=== PATIENT | male | born 1975 | race Caucasian/White ===

== ENCOUNTER 2019-12-27 16:49 | Emergency (ER) | payer OTHER ==
[~2019-12-27] VITALS: Ht 180.3 cm; Wt 113.4 kg
[~2019-12-27 16:49] MED LIST: ABAC300; ALBU90OI6 INH; ALLO100 PO; AMLO10 PO; ASPI81CH PO; BREO ELLIPTA 11 EACH IH; BUME2 PO; CEPH500 PO; CIPR500 PO; CYCL10 PO; FURO40 PO; FURO80 PO; HYDACE5 PO; HYDCHL50 PO; Humalog100 UNIT/1; INSDET100 SQ; INSLI100I SC; INSR10I SC; LISI20 PO; LOSA25 PO; Lisinopril2.5 MG PO; META800 PO; METO100 PO; METO100ER PO; METO2.5 PO; METO25ER PO; METO50 PO; METR500 PO; NAPR500 PO; OLME20-12. PO; OMEG1CAP30 PO; OXYACE5T PO; PENVK500 PO; POTCHL10ER PO; PRAZ2 PO; PROM25 PO; SPIR25 PO; TRAM50 PO; VALS80 PO; Zofran4 MG PO; Zofran8 MG PO
[2019-12-27 17:18] LABS: BASOPHILS ABSOLUTE AUTO 0.08 K/mm3 (0.00-0.23); BASOPHILS PERCENT AUTO 0 % (0-2); EOSINOPHILS ABSOLUTE AUTO 0.05 K/mm3 (0.00-0.68); EOSINOPHILS PERCENT AUTO 0 % (0-6); Hematocrit 40.4 % (37.0-53.0); Hemoglobin 13.2 g/dL (13.5-17.5); IMMATURE GRAN ABSOLUTE AUTO 0.14 K/mm3 (0.00-0.10); IMMATURE GRAN PERCENT AUTO 1 % (0-1); LYMPHOCYTES PERCENT AUTO 3 % (21-46); MONOCYTES ABSOLUTE AUTO 1.11 K/mm3 (0.16-1.47); MONOCYTES PERCENT AUTO 5 % (4-13); Mean Corpuscular HGB 29.7 pg (26.0-34.0); Mean Corpuscular HGB Conc 32.7 g/dL (31.5-36.5); Mean Corpuscular Volume 91 fL (80-100); Mean Platelet Volume 9.7 fL (9.1-12.4); NEUTROPHILS ABSOLUTE AUTO 18.89 K/mm3 (1.96-9.15); NEUTROPHILS PERCENT AUTO 91 % (41-73); Platelet Count 192 K/mm3 (150-400); RDW Coefficient Variation 14.1 % (11.7-14.2); RDW Standard Deviation 47.1 fL (35.1-46.3); Red Blood Cell Count 4.44 M/mm3 (4.30-5.90); White Blood Cell Count 20.87 K/mm3 (4.00-11.30)
[2019-12-27 17:40] LABS: Albumin, Blood 3.9 g/dL (3.4-5.0); Bun/Creatinine Ratio 11.3 (12.0-20.0); Calcium, Blood 9.5 mg/dL (8.5-10.1); Creatinine, Blood 1.94 mg/dL (0.60-1.20); Globulin, Blood 4.1 g/dL (2.2-4.0); Potassium, Blood 4.4 mmol/L (3.5-5.5)
[2019-12-27] MEDS ORDERED: PROM25 PO (18:41)
== END 2019-12-27 19:09 | disposition home or self-care (01) ==
LOC: ER 16:49
PROVIDERS: Emergency Medicine
DX: R11.2 Nausea with vomiting, unspecified (principal); R19.7 Diarrhea, unspecified; R10.9 Unspecified abdominal pain; I10 Essential (primary) hypertension; E10.43 Type 1 diabetes mellitus with diabetic autonomic (poly)neuropathy; K31.84 Gastroparesis; Z88.0 Allergy status to penicillin; Z88.2 Allergy status to sulfonamides; Z88.8 Allergy status to other drugs, medicaments and biological substances; Z88.1 Allergy status to other antibiotic agents; Z79.82 Long term (current) use of aspirin; Z79.899 Other long term (current) drug therapy
CPT/HCPCS: 36415; 80053; 83690; 83735; 85025; 96361; 96374; 99283-25; J2405; J2550; J7120

== ENCOUNTER 2020-10-27 06:46 | Day surgery (SDC) | payer OTHER ==
[~2020-10-27] VITALS: Ht 180.3 cm; Wt 107.0 kg
[~2020-10-27 06:46] MED LIST changes: +BREO ELLIPTA 11 EAC1 IH; -BREO ELLIPTA 11 EACH IH; +LORA10ER PO; +RAYALDEE30 MCG PO
[2020-10-27 08:12] LABS: BASOPHILS ABSOLUTE AUTO 0.07 K/mm3 (0.00-0.23); BASOPHILS PERCENT AUTO 1 % (0-2); EOSINOPHILS ABSOLUTE AUTO 0.16 K/mm3 (0.00-0.68); EOSINOPHILS PERCENT AUTO 1 % (0-6); Hematocrit 37.9 % (37.0-53.0); Hemoglobin 12.9 g/dL (13.5-17.5); IMMATURE GRAN ABSOLUTE AUTO 0.04 K/mm3 (0.00-0.10); IMMATURE GRAN PERCENT AUTO 0 % (0-1); LYMPHOCYTES ABSOLUTE AUTO 1.22 K/mm3 (0.84-5.20); LYMPHOCYTES PERCENT AUTO 11 % (21-46); MONOCYTES ABSOLUTE AUTO 0.71 K/mm3 (0.16-1.47); MONOCYTES PERCENT AUTO 6 % (4-13); Mean Corpuscular HGB 29.9 pg (26.0-34.0); Mean Corpuscular Volume 88 fL (80-100); Mean Platelet Volume 10.7 fL (9.1-12.4); NEUTROPHILS ABSOLUTE AUTO 9.11 K/mm3 (1.96-9.15); NEUTROPHILS PERCENT AUTO 81 % (41-73); Platelet Count 211 K/mm3 (150-400); RDW Coefficient Variation 14.3 % (11.7-14.2); RDW Standard Deviation 46.6 fL (35.1-46.3); Red Blood Cell Count 4.31 M/mm3 (4.30-5.90); White Blood Cell Count 11.31 K/mm3 (4.00-11.30)
--- NOTE | 2020-10-27 13:29 | NUR ---
PT TO IMAGING.
--- NOTE | 2020-10-27 14:00 | NUR ---
PT RESTING COMFORTABLY, VSS. NADN. L CHEST WALL SITE REMAINS CLEAR. NO BLEEDING NOTED. CLINDAMYCIN 300MG IV STARTED PER ORDERS. TOLERATING WELL. S/O AT BEDSIDE.
--- NOTE | 2020-10-27 14:50 | NUR ---
PT VERBALIZES UNDERSTANDING WRITTEN AND VERBAL ORDERS. PT DRESSES SELF WITH MINIMAL ASSISTANCE. VSS. NADN. PT WITH SLING IN PLACE.
--- NOTE | 2020-10-27 14:56 | NUR ---
PT IV DC'D. CATH INTACT. PRESSURE DSG APPLIED. PT DC TO HOME HOME VIA S/O BY ELVIS.
== END 2020-10-27 15:12 | disposition home or self-care (01) ==
LOC: MHTC 06:46
PROVIDERS: Internal Medicine Cardiovascular Disease
DX: I49.5 Sick sinus syndrome (principal); I12.9 Hypertensive chronic kidney disease with stage 1 through stage 4 chronic kidney disease, or unspecified chronic kidney disease; E10.22 Type 1 diabetes mellitus with diabetic chronic kidney disease; N18.9 Chronic kidney disease, unspecified; J45.909 Unspecified asthma, uncomplicated; H54.8 Legal blindness, as defined in USA; E78.5 Hyperlipidemia, unspecified; E66.9 Obesity, unspecified; Z68.32 Body mass index [BMI] 32.0-32.9, adult; Z95.2 Presence of prosthetic heart valve; Z88.1 Allergy status to other antibiotic agents; Z88.5 Allergy status to narcotic agent; Z88.0 Allergy status to penicillin; Z88.2 Allergy status to sulfonamides; Z88.8 Allergy status to other drugs, medicaments and biological substances
CPT/HCPCS: 33208; 71046; 82947; 85025; 93005; 93010; 99152; 99153; A9270; C1785; C1898; J1580; J1644; J2250; J2405; J3010; J7030; J7040

== ENCOUNTER 2021-02-20 08:44 | Day surgery (SDC) | payer OTHER ==
[~2021-02-20] VITALS: Ht 180.3 cm; Wt 101.0 kg
[2021-02-20] MEDS ORDERED: ALLEGRA ALLERG180 MG PO (10:40)
--- NOTE | 2021-02-20 10:43 | NUR ---
Ambulatory in Day Surgery. History, Chart, Medications and Allergies reviewed before start of procedure. Patient confirms NPO status and agrees with scheduled surgery. Pre-Op teaching done. Pt verbalizes understanding. Patient States Post-Procedure ride home has been arranged.
--- NOTE | 2021-02-20 11:20 | NUR ---
02/20/21 1120 John Sevilla History, Chart, Medications and Allergies reviewed before start of procedure. Patient confirms NPO status and agrees with scheduled surgery. 3-LEAD EKG REVIEWED WITH PHYSICIAN PRIOR TO START OF PROCEDURE. MONITOR INTACT WITH CONTINUOUS PULSE OXIMETRY AND INTERMITTENT BP. PATIENT DETERMINED TO BE ASA APPROPRIATE FOR PROPOFOL SEDATION PRIOR TO START OF PROCEDURE BY . Bite Block Placed, WILL REMOVE AFTER PROCEDURE. HURRICAINE SPRAY TO OROPHARYX.
--- NOTE | 2021-02-20 12:26 | NUR ---
Patient States Post-Procedure ride home has been arranged with medical transport. Discharge instructions reviewed with patient. Patient verbalizes understanding. Copy given to patient to take home. Discharged via wheelchair to private car for ride home.
== END 2021-02-20 11:53 | disposition home or self-care (01) ==
LOC: ORSCMMR 08:44 → ORD 10:00 → ORSCMMR 11:53
PROVIDERS: Internal Medicine Gastroenterology
PROC: 0DB58ZX Excision of Esophagus, Via Natural or Artificial Opening Endoscopic, Diagnostic (ICD-10-PCS; principal; 2021-02-20 10:00)
PROC: 0DB78ZX Excision of Stomach, Pylorus, Via Natural or Artificial Opening Endoscopic, Diagnostic (ICD-10-PCS; principal; 2021-02-20 10:00)
PROC: 0DB98ZX Excision of Duodenum, Via Natural or Artificial Opening Endoscopic, Diagnostic (ICD-10-PCS; principal; 2021-02-20 10:00)
DX: K21.9 Gastro-esophageal reflux disease without esophagitis (principal); R11.2 Nausea with vomiting, unspecified; E10.319 Type 1 diabetes mellitus with unspecified diabetic retinopathy without macular edema; F41.8 Other specified anxiety disorders; K31.84 Gastroparesis; Z95.0 Presence of cardiac pacemaker; Z79.4 Long term (current) use of insulin; Z79.899 Other long term (current) drug therapy
CPT/HCPCS: 82947; 88305; 88342; A9270; J2250; J2704; J7120

== ENCOUNTER 2021-06-25 14:27 | Inpatient (IN) | payer OTHER ==
[~2021-06-25] VITALS: Ht 180.3 cm; Wt 90.5 kg
[~2021-06-25 14:27] MED LIST changes: +ALLEGRA ALLERG180 MG PO
[2021-06-25] MEDS ORDERED: Ventolin/Prove6.7 GM INH (14:49)
[2021-06-25] MEDS ORDERED: LOSARTAN POTASS25 M2 PO (14:49)
[2021-06-25] MEDS ORDERED: FLUTICASONE-SA1 EAC9 INH (14:50)
[2021-06-25] MEDS ORDERED: PANTOPRAZOLE SO40 M2 PO (14:50)
[2021-06-25] MEDS ORDERED: AMLODIPINE BESY10 MG PO (14:50)
[2021-06-25] MEDS ORDERED: Fexofenadine HC60 MG PO (14:50)
[2021-06-25] MEDS ORDERED: PRAZ1 ×2 (14:50→14:55)
[2021-06-25] MEDS ORDERED: EZETIMIBE10 M6 PO (14:51)
[2021-06-25] MEDS ORDERED: SPIRONOLACTONE25 MG PO (14:51)
[2021-06-25] MEDS ORDERED: K-Dur10 MEQ (14:51)
[2021-06-25] MEDS ORDERED: ALLOPURINOL100 M1 PO (14:51)
[2021-06-25] MEDS ORDERED: INSULIN AS100 UNIT/7 (14:52)
[2021-06-25] MEDS ORDERED: TOUJEO SOL300 UNIT/2 SC (14:52)
[2021-06-25] MEDS ORDERED: FLUTICASONE-SA1 EAC9 IH (14:53)
[2021-06-25] MEDS ORDERED: METOCLOPRAMIDE H (14:53)
[2021-06-25] MEDS ORDERED: FUROSEMIDE40 MG PO (14:53)
[2021-06-25] MEDS ORDERED: METO100ER PO (14:53)
[2021-06-25] MEDS ORDERED: ARNUITY ELLIP100 MCG (14:54)
[2021-06-25 15:00] LABS: BASOPHILS ABSOLUTE AUTO 0.11 K/mm3 (0.00-0.23); BASOPHILS PERCENT AUTO 1 % (0-2); EOSINOPHILS ABSOLUTE AUTO 0.02 K/mm3 (0.00-0.68); EOSINOPHILS PERCENT AUTO 0 % (0-6); Hematocrit 40.6 % (37.0-53.0); Hemoglobin 13.2 g/dL (13.5-17.5); IMMATURE GRAN ABSOLUTE AUTO 0.07 K/mm3 (0.00-0.10); IMMATURE GRAN PERCENT AUTO 1 % (0-1); LYMPHOCYTES ABSOLUTE AUTO 0.78 K/mm3 (0.84-5.20); LYMPHOCYTES PERCENT AUTO 5 % (21-46); MONOCYTES ABSOLUTE AUTO 0.33 K/mm3 (0.16-1.47); MONOCYTES PERCENT AUTO 2 % (4-13); Mean Corpuscular HGB 28.5 pg (26.0-34.0); Mean Corpuscular HGB Conc 32.5 g/dL (31.5-36.5); Mean Corpuscular Volume 88 fL (80-100); Mean Platelet Volume 10.2 fL (9.1-12.4); NEUTROPHILS ABSOLUTE AUTO 13.26 K/mm3 (1.96-9.15); NEUTROPHILS PERCENT AUTO 91 % (41-73); Platelet Count 248 K/mm3 (150-400); RDW Coefficient Variation 13.8 % (11.7-14.2); RDW Standard Deviation 44.4 fL (35.1-46.3); Red Blood Cell Count 4.63 M/mm3 (4.30-5.90); White Blood Cell Count 14.57 K/mm3 (4.00-11.30)
[2021-06-25 15:56] LABS: Albumin, Blood 3.7 g/dL (3.4-5.0); Albumin/Globulin Ratio 0.8 (0.8-1.8); Bilirubin, Total 1.6 mg/dL (0.1-1.0); Bun/Creatinine Ratio 18.3 (12.0-20.0); Calcium, Blood 10.1 mg/dL (8.5-10.1); Creatinine, Blood 2.4 mg/dL (0.60-1.20); Globulin, Blood 4.6 g/dL (2.2-4.0); Potassium, Blood 5.4 mmol/L (3.5-5.5); Total Protein, Blood 8.3 g/dL (6.4-8.2)
[2021-06-25 18:23] LABS: Glucose, Blood 626 mg/dL (70-99)
--- NOTE | 2021-06-25 19:00 | NUR ---
ASSUMED CARE PATIENT LYING IN BED AWAKE, TALKING WITH STAFF. BELGONINGS ARE PLACED IN OPEN CUBBY IN ROOM. INSUILN GTT INF @ 9 UNITS/HR AND NS @ 250ML/HR INTO RT AC. LT AC IV SALINE LOCKED. V/S STABLE. BEDSIDE REPORT COMPLETED WITH NAIN MILLER.
[2021-06-25 19:07] LABS: Calcium, Blood 9.1 mg/dL (8.5-10.1); Creatinine, Blood 2.58 mg/dL (0.60-1.20); Potassium, Blood 4.1 mmol/L (3.5-5.5)
[2021-06-25 23:11] LABS: Hematocrit 33.2 % (37.0-53.0); Hemoglobin 11.3 g/dL (13.5-17.5)
[2021-06-25 23:26] LABS: Bun/Creatinine Ratio 19.7 (12.0-20.0); Calcium, Blood 9.2 mg/dL (8.5-10.1); Creatinine, Blood 2.49 mg/dL (0.60-1.20); Potassium, Blood 3.8 mmol/L (3.5-5.5)
[2021-06-26 04:17] LABS: Albumin, Blood 2.8 g/dL (3.4-5.0); Albumin/Globulin Ratio 0.8 (0.8-1.8); Bilirubin, Total 0.7 mg/dL (0.1-1.0); Bun/Creatinine Ratio 19.9 (12.0-20.0); Calcium, Blood 8.7 mg/dL (8.5-10.1); Creatinine, Blood 2.41 mg/dL (0.60-1.20); Globulin, Blood 3.6 g/dL (2.2-4.0); Potassium, Blood 3.7 mmol/L (3.5-5.5); Total Protein, Blood 6.4 g/dL (6.4-8.2)
--- NOTE | 2021-06-26 06:30 | NUR ---
SHIFT SUMMARY PATIENT SLEPT THROUGH MOST OF SHIFT. CPAP PLACED ON PATIENT WITH HOME SETTINGS 12/10 21% FIO2. CBG DECREASED FROM 500'S NOW DOWN TO 250'S. NS SWITCHED TO D5 / NS @ 200ML/HR. INSULIN GTT @ 6 UNITS/HR. NO URINE OUTPUT DURING SHIFT. PATIENT HAD ONE EPISODE OF VOMITING DURING THE NIGHT FOLLOWING A COUGHING FIT, BUT DECLINED NAUSEA MEDICATION. NO OTHER CHANGES DURING SHIFT.
--- NOTE | 2021-06-26 07:43 | NUR ---
PT AWAKE, A&O, FOLLOWING COMMANDS ABLE. SPEAKING IN FULL SENTENCES. STS HE IS FEELING MUCH IMPROVED & IS IN GOOD SPIRITS. CBG 169. INSULIN gtt DEC TO 4u/hr. D5 1/2NS @ 200ml/hr. TOLERATING SIPS OF WATER. DENIES N/V. ASSISTED TO STAND @ BEDSIDE TO USE URINAL, NO OUTPUT. PT REQUESTS TO SIT ON THE SIDE OF THE BED. BED LOW, CALL LIGHT W/ IN REACH, & DOOR LEFT OPEN FOR BEST PT OBS. SEE INITIAL SHIFT DOCUMENTATION FOR FULL ASSESSMENT.
--- NOTE | 2021-06-26 08:48 | NUR ---
DR BORREGO @ BEDSIDE FOR AM ROUNDS. DISCUSSED PT's TRENDING CBGs & TRANSITIONING OFF THE INSULIN gtt. PT ABLE TO TOLERATE PO FLUIDS. PER SALIMA, MAY ADVANCE DIET TOLERATED & D/T PT's INSULIN PUMP, WE WILL TRANSITION HIM FROM THE gtt TO HIS PUMP ONCE HIS ARRIVES W/ THE PUMP. PT UPDATED & IS AGREEABLE TO THIS PLAN. PT GIVEN JELLO & WATER, TOLERATED WELL.
[2021-06-26 09:15] LABS: Bun/Creatinine Ratio 20.2 (12.0-20.0); Calcium, Blood 9.5 mg/dL (8.5-10.1); Creatinine, Blood 2.23 mg/dL (0.60-1.20); Potassium, Blood 3.9 mmol/L (3.5-5.5)
--- NOTE | 2021-06-26 10:16 | NUR ---
@ ROUTINE ROUNDING, PT STS HE WANTS TO BE DC'D HOME TODAY. PT EDUCATED ON HIS FRAGILE STATE & THAT HE IS ONLY JUST RECOVERED FROM DKA & WILL NEED FURTHER MONITORING @ LEAST THROUGH THE DAY. PT STS HE IS VERY "ON EDGE" NOT BEING @ HOME & W/OUT HIS ASSISTIVE DEVICES; STS "I WILL CHECK MYSELF OUT". PT SEEMS SOMEWHAT RECEPTIVE TO EDUCATION BUT STILL INSISTS ON LEAVING WHEN HIS SPOUSE ARRIVES THIS AFTERNOON.
--- NOTE | 2021-06-26 13:00 | NUR ---
DR NOVOA @ BEDSIDE FOR ROUNDS & TO DISCUSS PLAN FOR DC HOME. PER MD, PT MAY EAT LUNCH & RE-START PERSONAL INSULIN PUMP INSULIN gtt IS STOPPED. IF CBGs REMAIN <250, PT MAY BE DC'd HOME WHEN HIS RIDE ARRIVES @ 1530. PT IS AGREEABLE TO THIS PLAN.
[2021-06-26 13:20] LABS: Bun/Creatinine Ratio 20.2 (12.0-20.0); Calcium, Blood 9.2 mg/dL (8.5-10.1); Creatinine, Blood 2.03 mg/dL (0.60-1.20); Potassium, Blood 3.9 mmol/L (3.5-5.5)
--- NOTE | 2021-06-26 16:00 | NUR ---
UPDATE: INC CBG. PT MADE READY FOR DC. CBG NOW 274 DESPITE PT's RECEIVING 6 units REG INSULIN BOLUS FROM INSULIN PUMP. DENIES N/V, ABD PAIN, DIZZINESS. PT STS HE WILL LEAVE AMA IF HE IS NOT DC'd; STS HE CAN MANAGE HIS CBGs @ HOME W/ HIS PUMP. CALLED DR NOVOA & DISCUSSED CONCERNS FOR ABOVE. PER BRIGHT, ADVISE PT TO BOLUS SELF W/ 3units OF INSULIN VIA PUMP PT HAS BEEN ON INSULIN gtt & MAY REQUIRE MORE INSULIN. PT IS OK TO BE DC'd HOME PER MD. PT GIVEN THOROUGH DC INSTRUCTIONS & TEACHING ON HYPERGLYCEMIA, UNDERSTANDING VERBALIZED. PT ENCOURAGED TO RETURN TO ED FOR RETURN OF HYPERGLYCEMIA S/Sx THAT ARE UNCHANGED W/ HOME INSULIN REGIMEN. UNDERSTANDING VERBALIZED. OPPORTUNITY PROVIDED FOR QUESTIONS & ALL QUESTIONS ANSWERED. PT OOTD W/ BELONGINGS.
== END 2021-06-26 16:15 | disposition home or self-care (01) | DRG 637 ==
LOC: ER 14:27 → ICUW 17:32 → ICUE 17:53
PROVIDERS: Family Medicine; Student in an Organized Health Care Education/Training Program; ADMIT Hospitalist
DX: E10.10 Type 1 diabetes mellitus with ketoacidosis without coma (principal); K22.6 Gastro-esophageal laceration-hemorrhage syndrome; N17.9 Acute kidney failure, unspecified; E10.22 Type 1 diabetes mellitus with diabetic chronic kidney disease; I12.9 Hypertensive chronic kidney disease with stage 1 through stage 4 chronic kidney disease, or unspecified chronic kidney disease; N18.32 Chronic kidney disease, stage 3b; D72.829 Elevated white blood cell count, unspecified; E10.43 Type 1 diabetes mellitus with diabetic autonomic (poly)neuropathy; K31.84 Gastroparesis; J45.20 Mild intermittent asthma, uncomplicated; E10.319 Type 1 diabetes mellitus with unspecified diabetic retinopathy without macular edema; Z88.0 Allergy status to penicillin; Z88.2 Allergy status to sulfonamides; Z88.1 Allergy status to other antibiotic agents; Z95.0 Presence of cardiac pacemaker; Z88.8 Allergy status to other drugs, medicaments and biological substances; Z79.4 Long term (current) use of insulin; Z79.899 Other long term (current) drug therapy; Z79.82 Long term (current) use of aspirin; Z95.2 Presence of prosthetic heart valve; Z98.890 Other specified postprocedural states; Z90.49 Acquired absence of other specified parts of digestive tract
CPT/HCPCS: 36415; 71045; 80048; 80053; 82947; 83690; 84484; 85014; 85018; 85025; 93005; 93010; 94640; 94660; 94664; 96374; 96375; 99285; A9270; C9113; J1790; J1815; J2405; J2765; J7030; J7042; J7120

== ENCOUNTER → 2024-09-28 | Outpatient (CLI) | payer OTHER ==
[~2024-09-28] MED LIST changes: +ALLOPURINOL100 M1 PO; +AMLODIPINE BESY10 MG PO; +ARNUITY ELLIP100 MCG; +EZETIMIBE10 M6 PO; +FLUTICASONE-SA1 EAC9 IH; +FLUTICASONE-SA1 EAC9 INH; +FUROSEMIDE40 MG PO; +Fexofenadine HC60 MG PO; +INSULIN AS100 UNIT/7; +K-Dur10 MEQ; +LOSARTAN POTASS25 M2 PO; +METOCLOPRAMIDE H; +PANTOPRAZOLE SO40 M2 PO; +PRAZ1; +SPIRONOLACTONE25 MG PO; +TOUJEO SOL300 UNIT/2 SC; +Ventolin/Prove6.7 GM INH
[2024-09-28 10:20] LABS: Albumin, Blood 3.6 g/dL (3.4-5.0); Anion Gap 12 mmol/L (3-11); Blood Urea Nitrogen 36 mg/dL (8-24); Bun/Creatinine Ratio 18.1 (12.0-20.0); CHOL/HDL RATIO 4.3; CO2, Blood 25 mmol/L (21-32); Calcium, Blood 9.1 mg/dL (8.5-10.1); Chloride, Blood 101 mmol/L (98-108); Cholesterol 172 mg/dL (50-200); Creatinine, Blood 1.99 mg/dL (0.60-1.20); Glomerular Filtration Rate 41 (60-); Glucose, Blood 105 mg/dL (70-99); HDL Cholesterol 40 mg/dL (>39); LDL/HDL RATIO 2.3; Low Density Lipoprotein Chol 93 mg/dL (<110); Phosphorus, Blood 3.5 mg/dL (2.5-4.9); Sodium, Blood 134 mmol/L (136-145); Triglycerides 195 mg/dL (30-160); Very Low Density Lipoprot Chol 39 mg/dL (6-32)
== END | disposition home or self-care (01) ==
LOC: LAB SHORT 09:36 → LAB 09:36
PROVIDERS: Internal Medicine Nephrology
DX: N18.30 Chronic kidney disease, stage 3 unspecified (principal); D63.1 Anemia in chronic kidney disease; E78.00 Pure hypercholesterolemia, unspecified; R80.9 Proteinuria, unspecified
CPT/HCPCS: 36415; 80061; 80069; 85018

== ENCOUNTER 2025-01-27 21:06 | Inpatient (IN) | payer OTHER ==
[~2025-01-27] VITALS: Ht 180.3 cm; Wt 99.6 kg
[~2025-01-27 21:06] MED LIST changes: -K-Dur10 MEQ; +K-Dur10 MEQ PO; -METOCLOPRAMIDE H; +METOCLOPRAMIDE H PO
[2025-01-27] MEDS ORDERED: Ondansetron HCl 2 MG / ML 2ML Vial IV PRN (21:15)
[2025-01-27 21:29] LABS: BASOPHILS ABSOLUTE AUTO 0.05 K/mm3 (0.00-0.23); BASOPHILS PERCENT AUTO 0 % (0-2); EOSINOPHILS ABSOLUTE AUTO 0.07 K/mm3 (0.00-0.68); EOSINOPHILS PERCENT AUTO 0 % (0-6); Hematocrit 38.1 % (37.0-53.0); Hemoglobin 13.5 g/dL (13.5-17.5); IMMATURE GRAN ABSOLUTE AUTO 0.08 K/mm3 (0.00-0.10); IMMATURE GRAN PERCENT AUTO 0 % (0-1); LYMPHOCYTES ABSOLUTE AUTO 1.53 K/mm3 (0.84-5.20); LYMPHOCYTES PERCENT AUTO 9 % (21-46); MONOCYTES ABSOLUTE AUTO 1.00 K/mm3 (0.16-1.47); MONOCYTES PERCENT AUTO 6 % (4-13); Mean Corpuscular HGB Conc 35.4 g/dL (31.5-36.5); Mean Corpuscular Volume 86 fL (80-100); NEUTROPHILS ABSOLUTE AUTO 15.36 K/mm3 (1.96-9.15); NEUTROPHILS PERCENT AUTO 85 % (41-73); NRBC ABSOLUTE 0.00 K/mm3 (0.00-0.02); NRBC Auto 0.0 /100 WBC (0.0-0.2); Platelet Count 287 K/mm3 (150-400); RDW Coefficient Variation 14.7 % (11.7-14.2); RDW Standard Deviation 45.7 fL (35.1-46.3)
[2025-01-27 21:51] LABS: Alanine Aminotransfer (ALT/SGP 28.0 U/L (12-78); Albumin, Blood 3.8 g/dL (3.4-5.0); Albumin/Globulin Ratio 1.0 (0.8-1.8); Anion Gap 17.0 mmol/L (3-11); Aspartate Aminotrans (AST/SGOT 53.0 U/L (12-37); Bilirubin, Total 1.1 mg/dL (0.1-1.0); Blood Urea Nitrogen 37.0 mg/dL (8-24); CO2, Blood 22.0 mmol/L (21-32); Calcium, Blood 9.6 mg/dL (8.5-10.1); Chloride, Blood 88.0 mmol/L (98-108); Creatinine, Blood 2.61 mg/dL (0.60-1.20); Globulin, Blood 3.9 g/dL (2.2-4.0); Glucose, Blood 172.0 mg/dL (70-99); Potassium, Blood 4.2 mmol/L (3.5-5.5); Sodium, Blood 123.0 mmol/L (136-145); Total Protein, Blood 7.7 g/dL (6.4-8.2)
[2025-01-27] MEDS ORDERED: Metoclopramide HCl 5MG / ML 2ML Vial IV ONE (23:10)
[2025-01-28 00:45] LABS: pH Blood Venous 7.49 (7.34-7.37)
[2025-01-28] MEDS ORDERED: Prochlorperazine Edisylate 10 mg Vial IV ONE (01:00)
[2025-01-28] MEDS ORDERED: FLU VACC TS2025-26(6MOS UP)/PF 45 MCG/0.5 ML SYRINGE IM SCH (01:25)
[2025-01-28] MEDS ORDERED: NS 1,000 ML IV ONE (01:25)
[2025-01-28] MEDS ORDERED: Ondansetron HCl 2 MG / ML 2ML Vial IV PRN (01:25)
[2025-01-28] MEDS ORDERED: FentaNYL Citrate 50 MCG/ML 2 ML Injection IV PRN (01:25)
[2025-01-28] MEDS ORDERED: Metoclopramide HCl 5MG / ML 2ML Vial IV PRN ×2 (01:30→15:10)
[2025-01-28 01:46] LABS: Source, Urine Clean Catch
[2025-01-28 01:49] LABS: Bilirubin, Urine Neg (Neg); Glucose Qualitative, Urine Neg (Neg); Ketones, Urine 2+ (Neg); Leukocyte Esterase, Urine Neg (Neg); Protein, Urine 3+ (Neg); Specific Gravity, Urine 1.020 (1.003-1.022); Urobilinogen, Urine NORM (Normal)
[2025-01-28 01:59] LABS: Color, Urine Yellow (P-Yellow)
[2025-01-28 02:01] LABS: Red Blood Cells, Urine 0-2 /hpf (0-2)
[2025-01-28 02:04] LABS: U Amphetamine Screen Not Detected; U Barbiturate Screen Not Detected; U Benzodiazapine Screen Not Detected; U Buprenorphine Screen Not Detected; U Cannabinoids Screen DETECTED; U Cocaine Screen Not Detected; U Methadone Screen Not Detected; U Methamphetamine Screen Not Detected; U Opiates Screen Not Detected; U Oxycodone Screen Not Detected; U Phencyclidine Screen Not Detected
[2025-01-28 02:26] VITALS: BP 190/82
[2025-01-28 02:54] LABS: BASOPHILS ABSOLUTE AUTO 0.02 K/mm3 (0.00-0.23); BASOPHILS PERCENT AUTO 0 % (0-2); EOSINOPHILS ABSOLUTE AUTO 0.00 K/mm3 (0.00-0.68); EOSINOPHILS PERCENT AUTO 0 % (0-6); Hematocrit 33.7 % (37.0-53.0); Hemoglobin 11.7 g/dL (13.5-17.5); IMMATURE GRAN ABSOLUTE AUTO 0.05 K/mm3 (0.00-0.10); IMMATURE GRAN PERCENT AUTO 0 % (0-1); LYMPHOCYTES ABSOLUTE AUTO 0.99 K/mm3 (0.84-5.20); LYMPHOCYTES PERCENT AUTO 7 % (21-46); MONOCYTES ABSOLUTE AUTO 0.69 K/mm3 (0.16-1.47); MONOCYTES PERCENT AUTO 5 % (4-13); Mean Corpuscular HGB Conc 34.7 g/dL (31.5-36.5); Mean Corpuscular Volume 86 fL (80-100); NEUTROPHILS ABSOLUTE AUTO 12.73 K/mm3 (1.96-9.15); NEUTROPHILS PERCENT AUTO 88 % (41-73); NRBC ABSOLUTE 0.00 K/mm3 (0.00-0.02); NRBC Auto 0.0 /100 WBC (0.0-0.2); Platelet Count 230 K/mm3 (150-400); RDW Coefficient Variation 14.8 % (11.7-14.2); RDW Standard Deviation 46.5 fL (35.1-46.3)
[2025-01-28 03:11] LABS: Prothrombin Time Results 11.6 Sec (9.7-11.5)
[2025-01-28 03:18] LABS: Alanine Aminotransfer (ALT/SGP 24.0 U/L (12-78); Albumin, Blood 3.3 g/dL (3.4-5.0); Albumin/Globulin Ratio 1.0 (0.8-1.8); Anion Gap 17.0 mmol/L (3-11); Aspartate Aminotrans (AST/SGOT 34.0 U/L (12-37); Bilirubin, Total 0.8 mg/dL (0.1-1.0); Blood Urea Nitrogen 38.0 mg/dL (8-24); CO2, Blood 23.0 mmol/L (21-32); Calcium, Blood 9.1 mg/dL (8.5-10.1); Chloride, Blood 91.0 mmol/L (98-108); Creatinine, Blood 2.48 mg/dL (0.60-1.20); Globulin, Blood 3.3 g/dL (2.2-4.0); Glucose, Blood 140.0 mg/dL (70-99); Potassium, Blood 3.6 mmol/L (3.5-5.5); Sodium, Blood 127.0 mmol/L (136-145); Total Protein, Blood 6.6 g/dL (6.4-8.2)
--- NOTE | 2025-01-28 03:42 | NUR ---
ADMIT NOTE ADMITTED FROM ER THIS SHIFT. HANDOFF RECEIVED FROM REAL ESTATE EXECUTIVE ASSISTANTNAIN FINE. PT ARRIVED TO FLOOR VIA GURNEY. PERSONAL POSSESSIONS WITH PT. PT ORIENTED TO UNIT. CALL BUTTON WITHIN REACH. IV FLUIDS STARTED ORDERED. TELEMETRY IN PLACE. H
--- NOTE | 2025-01-28 04:00 | NUR ---
SHIFT SUMMARY PT IS A&OX4, PLEASANT AND COOPERATIVE WITH CARE. 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 ADMISSION ASSESSMENT AND OTHER DOCUMENTATION COMPLETED. PT REPORTS ABDOMINAL PAIN AND BACK PAIN. PT STATES HE HAS A BROKEN BACK AND WAS SUPPOSED TO GET A SPINAL FUSION YESTERDAY. PT IS ON 2L NC, RA AT BASLINE. PT OCCASIONALLY USES A CPAP AT NIGHT. PT IS ON TELE RUNNING NSR c A HR OF 90. PT IS NAUSEOUS, BUT HAS NOT HAD VOMITING SINCE ARRIVAL TO THE UNIT. NO ACUTE CHANGES SINCE ADMISSION NOTE. PT IS CURRENTLY RESTING IN BED WITH EVEN AND UNLABORED RESPIRATIONS. CALL LIGHT WITHIN REACH AND A TELE STICKER HAS BEEN ADDED TO THE NURSE BUTTON FOR THE PT TO FIND.
[2025-01-28] MEDS ORDERED: MONT10T PO (04:40)
[2025-01-28] MEDS ORDERED: Insulin Human Lispro 100 Units/ML 3ML Syringe SC SCH ×2 (06:00→07:30)
[2025-01-28] MEDS ORDERED: HydrALAZINE HCl 20 MG / ML 1ML Vial IV PRN (06:35)
[2025-01-28] MEDS ORDERED: Pantoprazole Sodium 40 MG Injection IV SCH (06:35)
[2025-01-28 07:31] VITALS: BP 154/86
[2025-01-28 09:05] LABS: Anion Gap 14.0 mmol/L (3-11); Blood Urea Nitrogen 36.0 mg/dL (8-24); CO2, Blood 24.0 mmol/L (21-32); Calcium, Blood 8.6 mg/dL (8.5-10.1); Chloride, Blood 95.0 mmol/L (98-108); Creatinine, Blood 2.65 mg/dL (0.60-1.20); Glucose, Blood 110.0 mg/dL (70-99); Potassium, Blood 3.5 mmol/L (3.5-5.5); Sodium, Blood 129.0 mmol/L (136-145)
[2025-01-28 10:43] VITALS: BP 185/82
--- NOTE | 2025-01-28 12:29 | NUR ---
started pt on clear liquids, tolerated water and some soada water, but angel came right back up, bess given, call light in reach.
[2025-01-28] MEDS ORDERED: LOSARTAN POTAS100 M1 PO (12:54)
[2025-01-28] MEDS ORDERED: Ventolin5 MG/1 ML INH (12:55)
[2025-01-28] MEDS ORDERED: PROAIR RESPICL90 MCG INH (12:55)
[2025-01-28] MEDS ORDERED: JARDIANCE10 MG PO (12:56)
[2025-01-28] MEDS ORDERED: BACL20 PO (12:56)
[2025-01-28] MEDS ORDERED: ZOLOFT10013 PO (12:57)
[2025-01-28] MEDS ORDERED: [UNRECOGNIZED DRUG - OTHER] INH (12:57)
[2025-01-28] MEDS ORDERED: METO50ER PO ×2 (12:58)
[2025-01-28] MEDS ORDERED: PRAZ5 PO (13:00)
[2025-01-28] MEDS ORDERED: AMLODIPINE BESYL5 MG PO (13:01)
[2025-01-28] MEDS ORDERED: HYDROmorphone HCl/Pf 1MG SYR IV PRN (15:20)
[2025-01-28 15:22] LABS: Anion Gap 18.0 mmol/L (3-11); Blood Urea Nitrogen 36.0 mg/dL (8-24); CO2, Blood 20.0 mmol/L (21-32); Calcium, Blood 9.1 mg/dL (8.5-10.1); Chloride, Blood 95.0 mmol/L (98-108); Creatinine, Blood 2.86 mg/dL (0.60-1.20); Glucose, Blood 139.0 mg/dL (70-99); Potassium, Blood 3.4 mmol/L (3.5-5.5); Sodium, Blood 130.0 mmol/L (136-145)
--- NOTE | 2025-01-28 15:42 | NUR ---
pt not tolerating anything on his stomach, restarted iv fluids, mom was in to visit, medicated with reglan, pt wants to sleep at this time, call light in reach.
[2025-01-28 15:48] VITALS: BP 172/84
--- NOTE | 2025-01-28 18:38 | NUR ---
pt has had emesis through out the shift, have medicated as scheduled, is tolerating a bubbly drink, very slowly, no further changes, call light in reach.
[2025-01-28 19:25] VITALS: BP 203/98
[2025-01-28 20:21] VITALS: BP 185/88
[2025-01-29] VITALS (9 sets, daily range): BP systolic 170–180; BP diastolic 78–86
--- NOTE | 2025-01-29 04:19 | NUR ---
SHIFT SUMMARY PT IS A&OX4, PLEASANT AND COOPERATIVE WITH CARE. PT CONTINUED TO EXPERIENCE NAUSEA AND VOMITING T/O THE NIGHT. MEDICATED WITH REGLAN PER EMAR AND DILAUDID FOR PAIN OF BACK AND STOMACH. PT HAS LR @200ML'S. PT IS NOT ABLE TO ADVANCE DIET AT THIS TIME, DUE TO NAUSEA. PT RESTED T/O SHIFT WITH EVEN AND UNLABORED RESPIRATIONS. CALL LIGHT WITHIN REACH, PT CALLS APPROPRIATELY.
[2025-01-29 04:41] LABS: BASOPHILS ABSOLUTE AUTO 0.07 K/mm3 (0.00-0.23); BASOPHILS PERCENT AUTO 0 % (0-2); EOSINOPHILS ABSOLUTE AUTO 0.04 K/mm3 (0.00-0.68); EOSINOPHILS PERCENT AUTO 0 % (0-6); Hematocrit 35.0 % (37.0-53.0); Hemoglobin 11.9 g/dL (13.5-17.5); IMMATURE GRAN ABSOLUTE AUTO 0.10 K/mm3 (0.00-0.10); IMMATURE GRAN PERCENT AUTO 1 % (0-1); LYMPHOCYTES ABSOLUTE AUTO 1.95 K/mm3 (0.84-5.20); LYMPHOCYTES PERCENT AUTO 10 % (21-46); MONOCYTES ABSOLUTE AUTO 1.71 K/mm3 (0.16-1.47); MONOCYTES PERCENT AUTO 8 % (4-13); Mean Corpuscular HGB Conc 34.0 g/dL (31.5-36.5); Mean Corpuscular Volume 89 fL (80-100); NEUTROPHILS ABSOLUTE AUTO 16.48 K/mm3 (1.96-9.15); NEUTROPHILS PERCENT AUTO 81 % (41-73); NRBC ABSOLUTE 0.00 K/mm3 (0.00-0.02); NRBC Auto 0.0 /100 WBC (0.0-0.2); Platelet Count 267 K/mm3 (150-400); RDW Coefficient Variation 15.1 % (11.7-14.2); RDW Standard Deviation 48.6 fL (35.1-46.3)
[2025-01-29 05:12] LABS: Anion Gap 15.0 mmol/L (3-11); Blood Urea Nitrogen 38.0 mg/dL (8-24); CO2, Blood 23.0 mmol/L (21-32); Calcium, Blood 9.0 mg/dL (8.5-10.1); Chloride, Blood 96.0 mmol/L (98-108); Creatinine, Blood 3.47 mg/dL (0.60-1.20); Glucose, Blood 116.0 mg/dL (70-99); Potassium, Blood 3.6 mmol/L (3.5-5.5); Sodium, Blood 130.0 mmol/L (136-145)
[2025-01-29] MEDS ORDERED: HydrALAZINE HCl 20 MG / ML 1ML Vial IV PRN (10:15)
[2025-01-29] MEDS ORDERED: NS 1,000 ML IV SCH (10:15)
[2025-01-29] MEDS ORDERED: CefTRIAXone Sodium 2,000 MG in NS 100 ML IV SCH (10:18)
[2025-01-29] MEDS ORDERED: Darbepoetin (Pharmacy Consult) SC SCH (10:20)
[2025-01-29] MEDS ORDERED: NS 250 ML IV PRN (11:25)
--- NOTE | 2025-01-29 13:59 | NUR ---
NOTE PT REF HIDA SCAN, PER PT, PT REPORTS "UNRESONABLE TO ASK ME TO LAY ON BACK FOR THAT LONG WHEN I HAVE A BROKEN BACK. HOANG COLON REPORTED TO THIS RN, "STRICT NPO NO NARCATIC RULE." DR. KILGORE NOTIFIED, DR. KILGORE GAVE VERBAL FOR A ULTRASOUND OF GALLBLADDER, HIDA SCAN D/C'D.
[2025-01-29 18:36] LABS: Creatinine, Blood 4.09 mg/dL (0.60-1.20)
--- NOTE | 2025-01-29 19:27 | NUR ---
SHIFT SUMMARY PT A&OX4. PT ADMITTED DUE TO GASTROPARESIS. PT REPORTS NO CHEST PAIN/SOB. PT REPORTS PAIN IN ABD AND BACK, PAIN MANAGED PER EMAR. PT GOT ULTRASOUND OF L ARM TODAY TO RULE OUT DVT DUE TO PT HAVING SWELLING IN L ARM. PT REPORTS NAUSEA, PT VOMITING THROUGH DAY. PT HAS ORDER FOR BLADDER SCAN, PT BLADDER SCANNED POST VOID, 16ML SHOWN ON BLADDER SCAN. RESULTS GIVEN TO DR. MAXWELL. REPORTED CPK AND CREATININE TO DR. MAXWELL, NO NEW ORDERS. PT GETTING NS AT 125ML/HR. BLOOD PRESSURE HIGH. HYDRALAZINE GIVENM, METOPROLOL AND NORVASC ADDED TO EMAR. DR. KILGORE AWARE. PT ON RA AT BASELINE, PT ON 2L OF O2 VIA N/C. CONT PULSE OX IN PLACE. SPO2 IS 92% PT REF INSULIN DUE TO NOT WANTING TO USE OUR INSULIN PEN. PT HOME INHALER IN DRAWER. PT IN BED, BED LOCKED, IN LOWEST POSITION, CALL LIGHT IN REACH.
--- NOTE | 2025-01-29 21:16 | NUR ---
PT REFUSED TO TAKE PO METOPROLOL AT THIS TIME DUE TO NAUSEA AND ACTIVE VOMITING. WILL ATTEMPT TO PROVIDE PT WITH PO METOPROLOL WHEN IV REGLAN IS GIVEN.
[2025-01-30 02:30] VITALS: BP 190/90
--- NOTE | 2025-01-30 03:38 | NUR ---
SHIFT SUMMARY PT IS A&OX4, PLEASANT AND COOPERATIVE WITH CARE. PT CONTINUES TO ATTEMPT A CLEAR LIQUID DIET WITH MINIMAL SUCCESS. PT REPORTS NAUSEA AND VOMITING T/O SHIFT AND IS MEDICATED PER EMAR. PT ALSO REPORTS 8-9/10 BACK PAIN AND 6/10 ABDOMINAL PAIN, MEDICATED PER EMAR. PT WAS ABLE TO KEEP DOWN HIS PO METOPROLOL THIS EVENING, ALTHOUGH IT HAD LITTLE EFFECT ON HIS BP, AND HYDRALAZINE ADMINISTERED FOR SBP >170. PT IS STILL ON 2L NC AND HAS A CONT PULSE OX., MAINTING >92%. PT HAS NS RUNNING @125ML/HR. PT CALLS APPROPRIATELY. RESTED T/O SHIFT WITH EVEN AND UNLABORED RESPIRATIONS. CALL LIGHT WITHIN REACH.
[2025-01-30 03:59] VITALS: BP 166/76
[2025-01-30] MEDS ORDERED: Albuterol 2.5 MG/3 ML VIAL INH PRN (05:15)
[2025-01-30] MEDS ORDERED: Albuterol 2.5 MG/3 ML VIAL INH SCH (05:20)
[2025-01-30 05:26] LABS: BASOPHILS ABSOLUTE AUTO 0.11 K/mm3 (0.00-0.23); BASOPHILS PERCENT AUTO 1 % (0-2); EOSINOPHILS ABSOLUTE AUTO 0.19 K/mm3 (0.00-0.68); EOSINOPHILS PERCENT AUTO 1 % (0-6); Hematocrit 34.7 % (37.0-53.0); Hemoglobin 11.8 g/dL (13.5-17.5); IMMATURE GRAN ABSOLUTE AUTO 0.09 K/mm3 (0.00-0.10); IMMATURE GRAN PERCENT AUTO 1 % (0-1); LYMPHOCYTES ABSOLUTE AUTO 1.89 K/mm3 (0.84-5.20); LYMPHOCYTES PERCENT AUTO 11 % (21-46); MONOCYTES ABSOLUTE AUTO 1.46 K/mm3 (0.16-1.47); MONOCYTES PERCENT AUTO 8 % (4-13); Mean Corpuscular HGB Conc 34.0 g/dL (31.5-36.5); Mean Corpuscular Volume 89 fL (80-100); NEUTROPHILS ABSOLUTE AUTO 14.07 K/mm3 (1.96-9.15); NEUTROPHILS PERCENT AUTO 79 % (41-73); NRBC ABSOLUTE 0.00 K/mm3 (0.00-0.02); NRBC Auto 0.0 /100 WBC (0.0-0.2); Platelet Count 286 K/mm3 (150-400); RDW Coefficient Variation 15.3 % (11.7-14.2); RDW Standard Deviation 49.5 fL (35.1-46.3)
[2025-01-30] MEDS ORDERED: Albuterol HFA200 ACT/6.7 GM INH INH PRN (05:35)
[2025-01-30 06:01] LABS: Alanine Aminotransfer (ALT/SGP 23.0 U/L (12-78); Albumin, Blood 3.0 g/dL (3.4-5.0); Albumin/Globulin Ratio 0.9 (0.8-1.8); Anion Gap 12.0 mmol/L (3-11); Aspartate Aminotrans (AST/SGOT 29.0 U/L (12-37); Bilirubin, Total 0.6 mg/dL (0.1-1.0); Blood Urea Nitrogen 44.0 mg/dL (8-24); CO2, Blood 24.0 mmol/L (21-32); Calcium, Blood 8.4 mg/dL (8.5-10.1); Chloride, Blood 100.0 mmol/L (98-108); Creatinine, Blood 3.88 mg/dL (0.60-1.20); Globulin, Blood 3.5 g/dL (2.2-4.0); Glucose, Blood 101.0 mg/dL (70-99); Magnesium, Blood 2.1 mg/dL (1.6-2.4); Phosphorus, Blood 3.3 mg/dL (2.5-4.9); Potassium, Blood 3.5 mmol/L (3.5-5.5); Sodium, Blood 132.0 mmol/L (136-145); Thyroid Stimulating Hormone 1.0 uIU/mL (0.360-4.800); Total Protein, Blood 6.5 g/dL (6.4-8.2); Uric Acid, Blood 7.3 mg/dL (3.5-7.2)
[2025-01-30 07:46] VITALS: BP 157/74
[2025-01-30] MEDS ORDERED: NS 1,000 ML IV SCH (11:40)
[2025-01-30 14:24] VITALS: BP 151/79
--- NOTE | 2025-01-30 18:14 | NUR ---
SHIFT SUMMARY PT IS A/OX4. 1 PERSON ASSIST R/T BLINDNESS. NO ACUTE CHANGES THROUGHOUT THIS SHIFT. PT TOLERATING CLEAR LIQUID DIET WITH MINIMAL NAUSEA, MEDICATED PER MAY. DILAUDID GIVEN PER MAY FOR BACK PAIN. NS RUNNING @ 75 ML/HR. PT IS PLEASANT AND COOPERATIVE WITH CARE AND CALLS APPROPRIATELY.
[2025-01-30 19:39] VITALS: BP 173/87
[2025-01-30] MEDS ORDERED: Insulin Human Lispro 100 Units/ML 3ML Syringe SC SCH (21:00)
[2025-01-31 03:31] VITALS: BP 178/83
[2025-01-31 05:27] LABS: Anion Gap 10.0 mmol/L (3-11); Blood Urea Nitrogen 36.0 mg/dL (8-24); CO2, Blood 24.0 mmol/L (21-32); Calcium, Blood 8.4 mg/dL (8.5-10.1); Chloride, Blood 102.0 mmol/L (98-108); Creatinine, Blood 2.62 mg/dL (0.60-1.20); Glucose, Blood 114.0 mg/dL (70-99); Potassium, Blood 3.0 mmol/L (3.5-5.5); Sodium, Blood 133.0 mmol/L (136-145)
--- NOTE | 2025-01-31 06:16 | NUR ---
SHIFT SUMMARY PT WITHOUT EMESIS DURING THE NIGHT. C/O INTERMITTENT SLIGHT NAUSEA- MEDICATED WITH REGLAN PER EMAR. C/O "GAS BUBBLE"- ORDER RECEIVED FOR SIMETHICONE AND GIVEN PER EMAR. PT MEDICATED FOR BACK PAIN WITH DILAUDID PER EMAR. IVF INFUSING PER ORDER. PT TOLERATING CLEAR LIQUIDS. PT ON O2 2LNC WITH CONTINUOUS PULSE OX IN PLACE- SATS WNL. PT SLEPT SHORT INTERVALS DURING THE NIGHT.
[2025-01-31 07:38] VITALS: BP 189/90
--- NOTE | 2025-01-31 12:13 | NUR ---
DISCHARGE NOTE PATIENT GIVEN EDUCATION VERBALLY AND IN PAPER FORM ABOUT FOLLOW UP APPOINTMENTS, MEDICATIONS AND PLAN. IV WAS REMOVED, PATIENT DRESSED HIMSELF, AND WAS TAKEN OUT TO FAMILY BY MEDICAL STAFF. PATIENT DENIED ANY FURTHER CONCERNS.
== END 2025-01-31 11:45 | disposition home or self-care (01) | DRG 73 ==
LOC: ER 21:06 → MEDS 21:07
PROVIDERS: Internal Medicine; Internal Medicine Nephrology; Student in an Organized Health Care Education/Training Program; ADMIT Internal Medicine
DX: E10.43 Type 1 diabetes mellitus with diabetic autonomic (poly)neuropathy (principal); N17.0 Acute kidney failure with tubular necrosis; E87.1 Hypo-osmolality and hyponatremia; I12.9 Hypertensive chronic kidney disease with stage 1 through stage 4 chronic kidney disease, or unspecified chronic kidney disease; E10.22 Type 1 diabetes mellitus with diabetic chronic kidney disease; J45.909 Unspecified asthma, uncomplicated; K31.84 Gastroparesis; F12.90 Cannabis use, unspecified, uncomplicated; E86.0 Dehydration; E87.8 Other disorders of electrolyte and fluid balance, not elsewhere classified; K80.20 Calculus of gallbladder without cholecystitis without obstruction; R91.1 Solitary pulmonary nodule; E10.319 Type 1 diabetes mellitus with unspecified diabetic retinopathy without macular edema; N30.90 Cystitis, unspecified without hematuria; D63.1 Anemia in chronic kidney disease; N18.32 Chronic kidney disease, stage 3b; H54.7 Unspecified visual loss; Z79.4 Long term (current) use of insulin; Z79.51 Long term (current) use of inhaled steroids; Z79.82 Long term (current) use of aspirin; Z79.899 Other long term (current) drug therapy; Z88.0 Allergy status to penicillin; Z88.2 Allergy status to sulfonamides; Z88.8 Allergy status to other drugs, medicaments and biological substances; Z88.1 Allergy status to other antibiotic agents; Z90.49 Acquired absence of other specified parts of digestive tract; Z98.890 Other specified postprocedural states
CPT/HCPCS: 36415; 74177; 76705; 80048; 80053; 81001; 82010; 82533; 82550; 82565; 82803; 82947; 83690; 83735; 83880; 84100; 84443; 84550; 85025; 85610; 87086; 93005; 93010; 93971; 94640; 94664; 94760; 94762; 96374-59; 96375; 96376; 99285-25; A9270; G0378; J0360; J0696; J0780; J1171; J1790; J2405; J2470; J2765; J3010; J7030; J7120; Q9967